=== PATIENT | female | born 1985 | race Caucasian/White ===

== ENCOUNTER 2018-11-14 07:25 | Day surgery (SDC) | payer OTHER, BC ==
[2018-11-14] MEDS ORDERED: MIDAZOLAM 1 MG/ML 2 ML INJ ×2 (09:55)
[2018-11-14] MEDS ORDERED: FENTAnyl 50 MCG/ML VIAL (09:56)
== END 2018-11-14 12:02 | disposition home or self-care (01) ==
LOC: GIL 07:25
DX: K64.8 Other hemorrhoids (principal); K63.89 Other specified diseases of intestine
CPT/HCPCS: 45378; 84703